=== PATIENT | female | born 1960 | race Caucasian/White ===

== ENCOUNTER 2016-07-25 12:18 | Emergency (ER) | payer OTHER ==
[~2016-07-25] VITALS: Ht 165.1 cm; Wt 88.6 kg
[2016-07-25 12:23] VITALS: Ht 165.1 cm; Wt 88.6 kg
[2016-07-25] MEDS ORDERED: KETOROLAC 60 MG INJ IM STA (14:15)
--- NOTE | 2016-07-25 15:47 | RADRPT ---
PROCEDURE: XR Left humerus CLINICAL INDICATION: Left shoulder pain TECHNIQUE: AP and lateral radiographs were submitted. COMPARISON: None FINDINGS: Osseous structures: appear well mineralized and intact with no fracture or osseous destruction evid ent. Joint spaces: are well maintained with no significant erosion or spurring evident. There is no sig nificant joint effusion Soft tissues: A globular calcification projects to the left humeral head compatible with calcific te ndonitis/bursitis. IMPRESSION: 1. Calcific tendonitis/bursitis seen about the left humeral head. 2. Otherwise, unremarkable left humerus study. Physician Zara Date Time Electronically viewed and signed by Physician Zara on 07/25/2016 15:47 RH/
--- NOTE | 2016-07-25 15:47 | RADRPT ---
PROCEDURE: XR Chest AP portable CLINICAL INDICATION: Chest pain TECHNIQUE: An AP portable radiograph of the chest was submitted. COMPARISON: None. FINDINGS: Support Hardware: None Cardiovascular: The cardiovascular silhouette appears unremarkable. Lung Grant: The lung grant appear clear with no nodule, alveolar infiltrate, for a interstitial pr ominence evident. Pleural Spaces: No pneumothorax or pleural effusion is identified. Osseous Structures: Mild diffuse degenerative spine changes are noted. Soft Tissues: The soft tissues appear generous. IMPRESSION: Unremarkable portable chest. Physician Zara Date Time Electronically viewed and signed by Alex Rubi Physician on 07/25/2016 15:46 RH/
--- NOTE | 2016-07-25 15:48 | RADRPT ---
PROCEDURE: CR Left Elbow CLINICAL INDICATION: Left elbow pain TECHNIQUE: AP, lateral, and an oblique radiographs were submitted. COMPARISON: None FINDINGS: Osseous Structures: The osseous elements appear well mineralized and intact. Joint Spaces: The joint spaces are well maintained. No joint effusion is evident. Soft Tissues: Appear unremarkable. IMPRESSION: Unremarkable left elbow series. Physician Zara Date Time Electronically viewed and signed by Alex Rubi Physician on 07/25/2016 15:48 RH/
--- NOTE | 2016-07-25 15:49 | RADRPT ---
PROCEDURE: CR Left Knee CLINICAL INDICATION: Pain TECHNIQUE: An AP, lateral, and an oblique radiographs were submitted. COMPARISON: None FINDINGS: Osseous Structures: The osseous elements appear well mineralized and intact. Joint Spaces: There is minimal spurring off the posterior inferior patella. The joint spaces are we ll maintained and no joint effusion is evident. Soft Tissues: The soft tissues appear unremarkable. IMPRESSION: 1. Minimal degenerative spurring off the posterior patella. 2. Otherwise, unremarkable left knee series. Physician Zara Date Time Electronically viewed and signed by Alex Rubi Physician on 07/25/2016 15:48 RH/
--- NOTE | 2016-07-25 15:50 | RADRPT ---
PROCEDURE: XR Left Shoulder CLINICAL INDICATION: Left shoulder pain TECHNIQUE: 4 views were submitted COMPARISON: None FINDINGS: Osseous structures: appear well mineralized and intact with no fracture or destructive process iden tified. Joint spaces: The glenohumeral joint appears unremarkable. The AC joint appears normal. Soft tissues: A 1.2 cm globular calcification projects posterior to the left humeral head compatible with calcific tendonitis/bursitis. IMPRESSION: 1. Calcific tendonitis/bursitis seen about the left humeral head. 2. Otherwise, unremarkable left shoulder series. Physician Zara Date Time Electronically viewed and signed by Physician Zara on 07/25/2016 15:49 /
[2016-07-25 15:56] LABS: BASOPHILS % 0.3 % (0.0-2.0); EOSINOPHILS # 0.1 10^3/ul (0.0-0.5); EOSINOPHILS % 1.3 % (0.0-7.0); HEMATOCRIT 38.1 % (37.0-47.0); HEMOGLOBIN 12.7 g/dl (12.0-16.0); LYMPHOCYTES # 2.5 10^3/ul (0.8-2.9); LYMPHOCYTES % 26.5 % (15.0-51.0); MEAN CORPUSCULAR HEMOGLOBIN 29.7 pg (29.0-33.0); MEAN CORPUSCULAR HGB CONC 33.4 g/dl (32.0-37.0); MEAN CORPUSCULAR VOLUME 88.9 fl (82.0-101.0); MEAN PLATELET VOLUME 9.1 fl (7.4-10.4); MONOCYTE # 0.6 10^3/ul (0.3-0.9); MONOCYTES % 6.5 % (0.0-11.0); NEUTROPHIL # 6.3 10^3/ul (1.6-7.5); NEUTROPHILS % 65.4 % (39.0-77.0); PLATELET COUNT 224 10^3/UL (140-440); RED BLOOD COUNT 4.28 10^6/ul (4.20-5.40); RED CELL DISTRIBUTION WIDTH 13.6 % (11.5-14.5); UNCORRECTED WBC 9.6 10^3/ul (4.8-10.8); WHITE BLOOD COUNT 9.6 10^3/ul (4.8-10.8)
[2016-07-25 16:10] LABS: CONDITION 1
[2016-07-25 16:11] LABS: CHLORIDE 104 mmol/L (97-110); INR 0.98; POTASSIUM 4.1 mmol/L (3.5-5.1); SODIUM 144 mmol/L (135-144)
[2016-07-25 16:12] LABS: PARTIAL THROMBOPLASTIN TIME 43.1 Sec (25.0-35.0)
[2016-07-25 16:13] LABS: CREATININE 0.71 mg/dl (0.44-1.00)
[2016-07-25 16:14] LABS: ANION GAP 16 (8-16); BLOOD UREA NITROGEN 18 mg/dl (7-20); CALCIUM 9.7 mg/dl (8.4-10.2); CARBON DIOXIDE 28 mmol/L (21-31); GLUCOSE 97 mg/dl (70-220)
[2016-07-25 16:26] LABS: TROPONIN-I < 0.012 ng/ml (0.00-0.12)
[2016-07-25] MEDS ORDERED: NAPR-260 PO (16:26)
--- NOTE | 2016-07-25 16:46 | ERD ---
ER Documentation Chief Complaint Date/Time DATE: 07/25/16 TIME: 16:41 Chief Complaint NECK PAIN RAD LEFT ARM X 2 DAYS HPI This is a 56-year-old female presents to the ER with multiple complaints. Patient states that she days ago she developed left shoulder pain that radiates down her arm. Pain is severe and constant patient is not able to lift her arm secondary to pain. She does admit to prickling and numbness of her entire arm. Patient states that pain radiates into her chest into her neck. Patient denies any shortness of breath. She denies any fevers or chills. Patient has not had any trauma and she has not lifted anything heavy. ROS 12 point review of systems was done, all negative except per HPI. Medications Home Meds Active Scripts Naproxen* (Naprosyn*) 500 Mg Tablet, 500 MG PO BID Y for PAIN AND/OR INFLAMMATION, #30 TAB Prov:JAGUAR PERRIN 07/25/16 Allergies Allergies: Coded Allergies: No Known Allergy (Unverified , 07/25/16) PMhx/Soc Medical and Surgical Hx: pt denies Medical Hx Hx Alcohol Use: No Hx Substance Use: No Hx Tobacco Use: No Physical Exam Vitals Vital Signs Date Time Temp Pulse Resp B/P Pulse Ox O2 Delivery O2 Flow Rate FiO2 07/25/16 12:23 98.3 73 20 137/82 99 Physical Exam GENERAL: The patient is well developed and appropriate for usual state of health , in no apparent distress. HEENT: Atraumatic. Conjunctivae are pink. Pupils equal, round, and reactive to light. Extraocular muscles are grossly intact. Bilateral tympanic membranes are clear with no evidence of erythema, effusion or dulling of the light reflex. The oropharynx is clear with no erythema or exudates. NECK: C-spine is soft and supple. There is no cervical lymphadenopathy. No step -offs, no crepitus. Tender to palpation along left trapezius muscle CHEST: Clear to auscultation bilaterally. There are no rales, wheezes or rhonchi. HEART: Regular rate and rhythm. No murmurs, clicks, rubs or gallops. ABDOMEN: Soft, nontender and nondistended. Good bowel sounds. No rebound or guarding. No gross peritonitis. No gross organomegaly or masses. No Gilman sign or McBurney point tenderness. No pulsatile masses. BACK: No midline or flank tenderness. EXTREMITIES: Patient is tender to palpation over the left shoulder. Patient is unable to perform any range of motion secondary to pain. Tender to palpation along the humerus. Patient is able to flex elbow however is not able to extend elbow. Full range of motion of left wrist. No snuffbox tenderness. Patient is neurovascularly intact. Radial ulnar and medial nerves are intact. NEURO: Alert and oriented. SKIN: There is no apparent rash or petechia. The skin is warm and dry. Result Diagram: 07/25/16 1540 07/25/16 1540 Results 24 hrs Laboratory Tests Test 07/25/16 15:40 Activated Partial Thromboplast Time 43.1Sec Anion Gap 16 Basophils # 0.010^3/ul Basophils % 0.3% Blood Urea Nitrogen 18mg/dl Calcium Level 9.7mg/dl Carbon Dioxide Level 28mmol/L Chloride Level 104mmol/L Creatinine 0.71mg/dl Eosinophils # 0.110^3/ul Eosinophils % 1.3% Glucose Level 97mg/dl Hematocrit 38.1% Hemoglobin 12.7g/dl INR International Normalized Ratio 0.98 Lymphocytes # 2.510^3/ul Lymphocytes % 26.5% Mean Corpuscular Hemoglobin 29.7pg Mean Corpuscular Hemoglobin Concent 33.4g/dl Mean Corpuscular Volume 88.9fl Mean Platelet Volume 9.1fl Monocytes # 0.610^3/ul Monocytes % 6.5% Neutrophils # 6.310^3/ul Neutrophils % 65.4% Nucleated Red Blood Cells # 0.010^3/ul Nucleated Red Blood Cells % 0.0/100WBC Platelet Count 07169^3/UL Potassium Level 4.1mmol/L Prothrombin Time 13.0Sec Prothrombin Time Ratio 1.0 Red Blood Count 4.2810^6/ul Red Cell Distribution Width 13.6% Sodium Level 144mmol/L Troponin I < 0.012ng/ml White Blood Count 9.610^3/ul Current Medications Medications (Trade) Dose Ordered Sig/Yael Route PRN Reason Start Time Stop Time Status Last Admin Dose Admin Ketorolac Tromethamine (Toradol) 60 mg ONCE STAT IM 07/25/16 14:15 07/25/16 14:22 DC 07/25/16 14:36 Procedures/MDM This is a 56-year-old female who presents to the ER with multiple complaints. An EKG was taken [address] elevation or T-wave inversion. Suspicion for ACS, pneumothorax, pulmonary embolism is low. Patient's troponin was normal and her chest x-ray was normal. Patient was found to have tendinitis of left humeral head. She was given a shot of Toradol here in the ER for significant leak better. Patient will be sent home with naproxen. Patient is neurovascularly intact I doubt limb compromise. I doubt infectious etiology. Patient is afebrile and well-appearing. Patient needs to follow-up with her primary care doctor within 1-2 days or return to ER sooner if symptoms worsen. Medical decision making sure with the patient she understands and agrees with plan. Departure Diagnosis: Primary Impression: Tendonitis Condition: Stable Patient Instructions: Tendonitis Additional Instructions: Call your primary care doctor TOMORROW for an appointment during the next 1-2 days.See the doctor sooner or return here if your condition worsens before your appointment time. JAGUAR PERRIN Jul 25, 2016 16:46
[2016-07-25 16:58] VITALS: BP 138/74; PULSE 85; RESP 18; TEMP 98.4
== END 2016-07-25 16:59 | disposition home or self-care (01) ==
LOC: FTE 12:18
DX: M77.9 Enthesopathy, unspecified (principal); R07.9 Chest pain, unspecified
CPT/HCPCS: 36415; 71010; 73030; 73060; 73080; 73562; 80048; 84484; 85025; 85610; 85730; 93005; 96372; J1885; Z7502